=== PATIENT | female | born 1980 | race Caucasian/White ===

== ENCOUNTER 2020-11-08 08:29 | Emergency (ER) | payer BC ==
[~2020-11-08] VITALS: Ht 160 cm; Wt 84.0 kg
[2020-11-08 08:40] VITALS: BP 125/93
[2020-11-08] MEDS ORDERED: ONDANSETRON PF 4 MG/2 ML VIAL. IVP ONE (09:00)
[2020-11-08] MEDS ORDERED: IV NORMAL SALINE 1,000ML 1,000 ML IV ONE (09:00)
--- NOTE | 2020-11-08 09:21 | PHYS DOC ---
Past History Past Medical History: GERD, Hypertension Additional Past Medical Histor: gestational diabetes, autoimmune issues Additional Past Surgical Histo: D&C Alcohol Use: None General Adult EDM: Chief Complaint: PELVIC PAIN HPI: HPI: 40 year old female presents with lower abdominal pain. The patient had a spontaneous 2 weeks ago. She has had some recent additional bleeding and some clots passed. Today she has nausea and more discomfort. She cannot get into her [facility] so she came to the emergency room. Patient denies fever or chills. Her pain is mild to moderate cramping. Review of Systems: Review of Systems: Constitutional: Denies fever or chills Eyes: Denies change in visual acuity HENT: Denies nasal congestion or sore throat Respiratory: Denies cough or shortness of breath Cardiovascular: Denies chest pain or edema GI: Lower abdominal pain, nausea. Denies vomiting, bloody stools or diarrhea : Vaginal bleeding Musculoskeletal: Denies back pain or joint pain Integument: Denies rash Neurologic: Denies headache, focal weakness or sensory changes Endocrine: Denies polyuria or polydipsia Lymphatic: Denies swollen glands Psychiatric: Denies depression or anxiety Current Medications: Current Meds: Current Medications Medications (Trade) Dose Ordered Sig/Erick Start Time Stop Time Status Last Admin Dose Admin Ondansetron HCl (Zofran) 4 mg 1X ONCE 11/08/20 09:00 11/08/20 09:01 UNV Sodium Chloride 1,000 ml @ 1,000 mls/hr 1X ONCE 11/08/20 09:00 11/08/20 09:59 UNV Physical Exam: PE: Constitutional: Well developed, well nourished, no acute distress, non-toxic appearance. [] HENT: Normocephalic, atraumatic, bilateral external ears normal, oropharynx moist, no oral exudates, nose normal. [] Eyes: PERRLA, EOMI, conjunctiva normal, no discharge. [] Neck: Normal range of motion, no tenderness, supple, no stridor. [] Cardiovascular:Heart rate regular rhythm, no murmur [] Lungs & Thorax: Bilateral breath sounds clear to auscultation [] Abdomen: Bowel sounds normal, soft, mild right lower quadrant and suprapubic tenderness, no masses, no pulsatile masses. [] Skin: Warm, dry, no erythema, no rash. [] Back: No tenderness, no CVA tenderness. [] Extremities: No tenderness, no cyanosis, no clubbing, ROM intact, no edema. [] Neurologic: Alert and oriented X 3, normal motor function, normal sensory function, no focal deficits noted. [] Psychologic: Affect normal, judgement normal, mood normal. [] Current Patient Data: Vital Signs: Vital Signs Date Time Temp Pulse Resp B/P (MAP) Pulse Ox O2 Delivery O2 Flow Rate FiO2 11/08/20 08:40 98.6 88 16 125/93 (104) 99 EKG: EKG: [] Radiology/Procedures: Radiology/Procedures: [] Impressions: INDICATION: Reason: miscarriage 2 weeks, pain, passed clots / Spl. Instructions: / History: COMPARISON: None. TECHNIQUE: Grayscale and color ultrasound images uterus and adnexa. Transabdominal and transvaginal images obtained. Transvaginal images were nee ded to better visualize structures that were limited on transabdominal imaging. FINDINGS: Uterus: 84 x 45 x 36 mm. 6 mm endometrial stripe. Right Ovary: 25 x 21 x 16 mm. Left Ovary: 56 x 40 x 30 mm. Vascular flow identified to bilateral ovaries. Left ovarian cysts measuring up to 31 mm. Small free fluid. There is some fluid within the cervix. IMPRESSION: * There is some fluid seen within the cervical region. * Multiple cystic lesions of the left ovary. Follow-up could be obtained to ensure that these appropriately decrease. * Small fluid in the pelvis which is a common finding in female patients. Electronically signed by: Mary Guerra MD (11/08/2020 10:22 AM) DESKTOP- [id number] DICTATED AND SIGNED BY: MARY GUERRA MD DATE: 11/08/20 1017 CC: KEYANA AMEZCUA DO; ELAINE BRAVO MD ~MTH0 0 Heart Score: C/O Chest Pain: N/A Risk Factors: Risk Factors: DM, Current or recent (<one month) smoker, HTN, HLP, family history of CAD, obesity. Risk Scores: Score 0 - 3: 2.5% MACE over next 6 weeks - Discharge Home Score 4 - 6: 20.3% MACE over next 6 weeks - Admit for Clinical Observation Score 7 - 10: 72.7% MACE over next 6 weeks - Early Invasive Strategies Course & Med Decision Making: Course & Med Decision Making Pertinent Labs and Imaging studies reviewed. (See chart for details) The patient's labs are unremarkable. Her urinalysis is negative for infection. Her pelvic ultrasound does not show any obvious retained products in the uterus. Her hCG is 1. She does have some fluid in the cervix as well as a small amount of free fluid. She also has cystic lesions in the left ovary. Is recommended that these are followed up by [facility] in a few days. I made patient aware of all of these results. She will follow-up with her [facility] as needed. She is stable for discharge at this time. [] Dragon Disclaimer: Dragon Disclaimer: This electronic medical record was generated, in whole or in part, using a voice recognition dictation system. Departure Departure: Impression: Primary Impression: Pelvic pain Additional Impression: Nausea Disposition: HOME / SELF CARE / HOMELESS Condition: STABLE Referrals: EALINE BRAVO MD (PCP) Patient Instructions: Miscarriage, [id number] Scripts Ondansetron (ONDANSETRON ODT) 4 Mg Tab.rapdis 1 TAB PO PRN Q6-8HRS PRN for VOMITING, #16 TAB Prov: KEYANA AMEZCUA DO 11/08/20 KEYANA AMEZCUA DO November 08, 2020 09:21
[2020-11-08 09:46] LABS: BASO # 0.1 x10^3/uL (0.0-0.2); BASO % 1 % (0-3); EOS # 0.2 x10^3/uL (0.0-0.7); EOS % 3 % (0-3); LYMPH # 1.7 x10^3/uL (1.0-4.8); LYMPH % 28 % (24-48); MEAN CORPUSCULAR HEMOGLOBIN 29 pg (25-35); MEAN CORPUSCULAR HGB CONC 32 g/dL (31-37); MEAN CORPUSCULAR VOLUME 91 fL (79-100); MONO # 0.4 x10^3/uL (0.0-1.1); MONO % 6 % (0-9); NEUT # 3.8 x10^3uL (1.8-7.7); NEUT % 62 % (31-73); PLATELET COUNT 222 x10^3/uL (140-400); RED BLOOD COUNT 4.08 x10^6/uL (3.50-5.40); RED CELL DISTRIBUTION WIDTH 13.8 % (11.5-14.5); WHITE BLOOD COUNT 6.2 x10^3/uL (4.0-11.0)
[2020-11-08 09:51] LABS: CALCIUM 9.1 mg/dL (8.5-10.1); CREATININE 0.7 mg/dL (0.6-1.0); GFR 92.7
[2020-11-08 09:59] LABS: ALBUMIN 3.9 g/dL (3.4-5.0); ALBUMIN/GLOBULIN RATIO 1.1 (1.0-1.7); TOTAL BILIRUBIN 0.4 mg/dL (0.2-1.0); TOTAL PROTEIN 7.5 g/dL (6.4-8.2)
[2020-11-08 10:09] LABS: BACTERIA,URINE 0 /HPF (0-FEW); BILIRUBIN,URINE NEG (NEG); CLARITY,URINE CLEAR; COLOR,URINE YELLOW; GLUCOSE,URINE NEG (NEG); NITRITE,URINE NEG (NEG); RBC,URINE 0 /HPF (0-2); SQUAMOUS EPITHELIAL CELL,UR MOD /LPF; UROBILINOGEN,URINE 0.2 mg/dL (0.2 mg/dL); WBC,URINE 0 /HPF (0-4)
--- NOTE | 2020-11-08 10:24 | RAD ---
INDICATION: Reason: miscarriage 2 weeks, pain, passed clots / Spl. Instructions: / History: COMPARISON: None. TECHNIQUE: Grayscale and color ultrasound images uterus and adnexa. Transabdominal and transvaginal images obtained. Transvaginal images were needed to better visualize structures that were limited on transabdominal imaging. FINDINGS: Uterus: 84 x 45 x 36 mm. 6 mm endometrial stripe. Right Ovary: 25 x 21 x 16 mm. Left Ovary: 56 x 40 x 30 mm. Vascular flow identified to bilateral ovaries. Left ovarian cysts measuring up to 31 mm. Small free fluid. There is some fluid within the cervix. IMPRESSION: * There is some fluid seen within the cervical region. * Multiple cystic lesions of the left ovary. Follow-up could be obtained to ensure that these approp riately decrease. * Small fluid in the pelvis which is a common finding in female patients. Electronically signed by: Tahir Guerra MD (11/08/2020 10:22 AM) [id number]
[2020-11-08] MEDS ORDERED: ONDA4TAB12 PO (10:37)
== END 2020-11-08 11:20 | disposition home or self-care (01) ==
LOC: ER 08:29
DX: R10.2 Pelvic and perineal pain (principal); R11.0 Nausea; R10.30 Lower abdominal pain, unspecified; K21.9 Gastro-esophageal reflux disease without esophagitis; I10 Essential (primary) hypertension
CPT/HCPCS: 36415; 76830; 76856; 80053; 81001; 84702; 85025; 96361; 96374; 99284; J2405; J7030